=== PATIENT | female | born 1945 | race Caucasian/White ===

== ENCOUNTER → 2016-07-31 | Outpatient (REF) | payer MEDICARE, OTHER ==
[~2016-07-31] MED LIST: ASPI-586 PO; CPR500T PO; FAMO40TA6; FLUO10CA19; FRSM20T PO; HYDR-3702 PO; LOSA1TAB70 PO; METO-272 PO; METR500T17 PO; MULT-305 PO; NFLOSA25TA PO; OMG1KC PO; ONDA4TAB8 PO; PHEN-640 PO; PROT10TA PO; SMV20T PO; ZOLP12.546 PO
== END ==
LOC: LAB 11:27
PROVIDERS: ATTEND Family Medicine
DX: R10.2 Pelvic and perineal pain (principal)
CPT/HCPCS: 87077; 87088; 87186

== ENCOUNTER → 2016-10-24 | Outpatient (REF) | payer MEDICARE, OTHER | LOC: LAB 14:43 | PROVIDERS: ATTEND Family Medicine | DX: Z53.9 Procedure and treatment not carried out, unspecified reason (principal) ==

== ENCOUNTER → 2016-10-25 | Outpatient (CLI) | payer MEDICARE, OTHER | LOC: LAB 09:10 | PROVIDERS: ATTEND Family Medicine | DX: R19.5 Other fecal abnormalities (principal) | CPT/HCPCS: 87324; 87449 ==

== ENCOUNTER → 2016-11-11 | Outpatient (CLI) | payer MEDICARE, OTHER ==
--- NOTE | 2016-11-11 15:20 | Diagnostic Imaging Report ---
INDICATION: Pain radiating down into the left leg for three weeks, no known injuries. EXAMINATION: Lumbosacral spine dated 11/11/2016. COMPARISON: 01/24/2009. FINDINGS: There is a levoconvex scoliotic deformity of the spine. Alignment of the spine is fairly well preserved with no significant subluxations appreciated. Vertebral body heights are maintained. There is intervertebral disc space narrowing and anterior spurring throughout the entire visualized lower thoracic spine. There is minimal intervertebral disc space narrowing noted at L4-L5 and L5-S1 with adjacent facet hypertrophy noted. IMPRESSION: 1. Scoliotic deformity with multilevel degenerative disease. No acute process appreciated. Dictated by: Dictated on workstation # [id number]
== END ==
LOC: RAD 14:25
PROVIDERS: ATTEND Physician Assistant Surgical
DX: M54.16 Radiculopathy, lumbar region (principal)
CPT/HCPCS: 72110